=== PATIENT | male | born 1985 | race American Indian/Alaskan Native ===

== ENCOUNTER 2017-03-04 10:47 | Emergency (ER) | payer BC ==
--- NOTE | 2017-03-04 11:04 | EDM.PDOC ---
ED HPI GENERAL MEDICAL PROBLEM - General Chief Complaint: Skin Complaint Stated Complaint: ABSCESS, Time Seen by Provider: 03/04/17 11:03 Source of Information: Reports: Patient - History of Present Illness INITIAL COMMENTS - FREE TEXT/NARRATIVE: Patient is here today for evaluation for an abscess to skin folds of his left lower abdomen. He states that this started a couple of days ago, has been draining. He is felt a little worse and had a fever today. He also notes that he has several lacerations to his hands. 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 He is not diabetic, has had recent blood work to assess this per his report. Denies any history of bleeding or clotting disorders. Denies any history of slow healing wounds. He has recently lost weight, he was advised by his PCP that he does have fatty liver and he is taking an active role in making lifestyle changes losing approximately 50 pounds. Left Groin Pain Score (Numeric/FACES): 10 - Related Data Allergies Allergy/AdvReac Type Severity Reaction Status Date / Time No Known Allergies Allergy Verified 03/04/17 11:03 Home Meds: Home Meds Cephalexin [Keflex] 500 mg PO BID #14 capsule 03/04/17 [Rx] ED ROS GENERAL - Review of Systems Review Of Systems: See Below Constitutional: Reports: Fever, Chills, Weight Loss (Intentional weight loss). Denies: Weakness, Fatigue, Decreased Appetite Respiratory: Reports: No Symptoms Cardiovascular: Reports: No Symptoms GI/Abdominal: Reports: No Symptoms Skin: Reports: Dryness, Wound (Right hand 2, left sided abdominal fold.). Denies: Bruising, Rash ED EXAM, SKIN/RASH Exam: See Below Exam Limited By: No Limitations General Appearance: Alert, WD/WN, No Apparent Distress Respiratory/Chest: No Respiratory Distress, Lungs Clear, Normal Breath Sounds Cardiovascular: Normal Peripheral Pulses, Regular Rate, Rhythm GI/Abdominal: Normal Bowel Sounds Skin: Warm, Dry (Healing wound to right thumb and index finger from previous injury. No drainage currently, no surrounding warmth or erythema. Abscess to intertrigo of left side of the abdomen with 2 areas of purulent drainage.) Course - Vital Signs Last Recorded V/S: Last Vital Signs Temp 101.1 F H 03/04/17 10:57 Pulse 105 H 03/04/17 10:57 Resp 20 12/02/17 10:57 BP 158/99 H 03/04/17 10:57 Pulse Ox 99 03/04/17 10:57 - Orders/Labs/Meds Orders: Active Orders 24 hr Category Date Time Status CULTURE WOUND [RM] Stat Lab 03/04/17 11:21 Ordered Meds: Medications Discontinued Medications Generic Name Dose Route Start Last Admin Trade Name Kendall PRN Reason Stop Dose Admin Ceftriaxone Sodium 1 gm 03/04/17 11:20 03/04/17 11:33 Rocephin IM 03/04/17 11:21 1 gm ONETIME ONE Administration Lidocaine HCl Confirm 03/04/17 11:33 03/04/17 11:34 Xylocaine-Mpf 1% Administered 03/04/17 11:34 2.1 ml Dose Administration 4 mls @ as directed .ROUTE .STK-MED ONE Ibuprofen 600 mg 03/04/17 11:20 03/04/17 11:34 Motrin PO 03/04/17 11:21 600 mg ONETIME ONE Administration - Re-Assessments/Exams Free Text/Narrative Re-Assessment/Exam: Superficial scrapes to right hand, no sign of infection. Draining abscess to abdominal fold on the left. Culture was obtained. Patient was given an injection of Rocephin in clinic and will start on Keflex twice a day. I recommended probiotic with this. Patient will take ibuprofen as needed for his fever and pain. He will follow-up with other provider in [place] or his PCP Dr. Snyder in [facility] next week. Advised that if symptoms should worsen or if fever worsens that he should return to ER and patient verbalized understanding of this. Patient requests a work note, was given a work note for 3 days to be not wearing his belt having a rubbing this area. Advised patient that any further recommendations will come from his PCP. 03/04/17 12:04 Departure - Departure Time of Disposition: 11:54 Disposition: Home, Self-Care 01 Condition: Good Clinical Impression: Abscess - Discharge Information Prescriptions: Cephalexin [Keflex] 500 mg PO BID #14 capsule Instructions: Abscess Referrals: PCP,Not In Area [Primary Care Provider] - Forms: ED Department Discharge Additional Instructions: Keep area clean and dry. Take full course of antibiotic. This may cause diarrhea. Actually that you stay hydrated, I recommend a probiotic while you're on the antibiotic and for 1 week after. Apply prior hot compresses several times daily to encourage drainage. Cover if draining. You may continue Epsom salt soaks to her hands. 600 mg ibuprofen 3 times daily as needed for fever or pain. Follow up with your provider either in [place] or Dr. Snyder in [place] next week. If you should have continuous fever or worsening of symptoms and certainly return to ER if needed. - My Orders Last 24 Hours: My Active Orders 03/04/17 11:21 CULTURE WOUND [RM] Stat - Assessment/Plan Last 24 Hours: My Active Orders 03/04/17 11:21 CULTURE WOUND [RM] Stat
[2017-03-04] MEDS ORDERED: cefTRIAXone 1 GM Vial IM ONE (11:20)
[2017-03-04] MEDS ORDERED: Ibuprofen 600 MG Tab PO ONE (11:20)
[2017-03-04] MEDS ORDERED: Lidocaine 1% 4 ML ONE (11:33)
== END 2017-03-04 12:05 | disposition home or self-care (01) ==
LOC: JD.ED 10:47
DX: L02.211 Cutaneous abscess of abdominal wall (principal)
CPT/HCPCS: 87070; 96372; 99283; A9270; J0696; 87077; 87181; 87184